=== PATIENT | female | born 1990 | race African-American/Black ===

== ENCOUNTER 2020-04-13 14:20 | Outpatient (REF) | payer MEDICAID, SELFPAY ==
--- NOTE | 2020-04-13 | US_ITS ---
EXAMINATION: PELVIC ULTRASOUND CLINICAL INFORMATION: Abnormal uterine bleeding COMPARISON: Previous pelvic ultrasound most recent December 2019 TECHNIQUE: Transabdominal and transvaginal pelvic ultrasound was performed. Transvaginal exam was performed for better visualization of uterus and ovaries. FINDINGS: The uterus appears elongated and measures 14 x 5 x 6.1 cm in dimension no focal uterine lesion is seen. The endometrium is difficult to visualize due to the elongated uterus. Endometrial thickness measures 0.5 cm transabdominally. No focal uterine lesion is seen. The ovaries are not identified. There is no fluid in the pelvis. US/US pelvic complete IMPRESSION: Limited exam. Elongated uterus. Normal thickness endometrium measuring 0.5 cm. Ovaries not seen.
--- NOTE | 2020-04-13 | US_ITS ---
EXAMINATION: US ABDOMEN COMPLETE CLINICAL INFORMATION: Generalized abdominal pain. Right upper quadrant and left upper quadrant pain status post fall. COMPARISON: None TECHNIQUE: Real-time imaging of the abdominal viscera. Technically difficult study secondary to body habitus and difficulty tolerating probe pressure. FINDINGS: PANCREAS: Normal. ABDOMINAL AORTA: The proximal, mid, and distal segments are normal in caliber. INFERIOR VENA CAVA: Visualized portions are normal. LIVER: Normal. The liver is normal in size. The liver contour is normal. Parenchymal echogenicity is normal. No focal hepatic lesion. There is no intrahepatic biliary duct dilatation seen. Limited exam due to body habitus. GALLBLADDER: Normal. The gallbladder is physiologically distended without evidence of stones, sludge, polyps, wall thickening or pericholecystic fluid. COMMON BILE DUCT: Normal in caliber measuring 0.3 cm in diameter. RIGHT KIDNEY: Normal. No hydronephrosis. No renal calculi or focal parenchymal lesions. The kidney measures 12.1 cm in maximum dimension. LEFT KIDNEY: Normal. No hydronephrosis. No renal calculi or focal parenchymal lesions. The kidney measures 13.3 cm in maximum dimension. SPLEEN: Normal. The spleen measures 12.3 cm in maximum dimension. FREE FLUID: None. US/US abdomen complete IMPRESSION: Unremarkable limited complete abdomen ultrasound.
--- NOTE | 2020-04-13 | US_ITS ---
EXAMINATION: PELVIC ULTRASOUND CLINICAL INFORMATION: Abnormal uterine bleeding COMPARISON: Previous pelvic ultrasound most recent December 2019 TECHNIQUE: Transabdominal and transvaginal pelvic ultrasound was performed. Transvaginal exam was performed for better visualization of uterus and ovaries. FINDINGS: The uterus appears elongated and measures 14 x 5 x 6.1 cm in dimension no focal uterine lesion is seen. The endometrium is difficult to visualize due to the elongated uterus. Endometrial thickness measures 0.5 cm transabdominally. No focal uterine lesion is seen. The ovaries are not identified. There is no fluid in the pelvis. US/US transvaginal IMPRESSION: Limited exam. Elongated uterus. Normal thickness endometrium measuring 0.5 cm. Ovaries not seen.
== END 2020-04-13 14:21 | disposition home or self-care (01) ==
LOC: HO.HMGCX 14:20
PROVIDERS: PCP Nurse Practitioner Family; Visit Provider Nurse Practitioner Family
DX: R10.11 Right upper quadrant pain (principal)
CPT/HCPCS: 76700; 76830; 76856

== ENCOUNTER 2020-04-13 14:29 | Outpatient (REF) | payer MEDICAID, SELFPAY | END 2020-04-13 14:30 | disposition home or self-care (01) | LOC: HO.HMGCX 14:29 | PROVIDERS: PCP Nurse Practitioner Family; Visit Provider Nurse Practitioner Family | DX: Z13.89 Encounter for screening for other disorder (principal) ==